=== PATIENT | female | born 1975 | race Caucasian/White ===

== ENCOUNTER 2024-05-19 10:28 | Emergency (ER) | payer BC ==
[2024-05-19] MEDS: Diphtheria,Pertussis(Acell),Tetanus Vaccine 0.5 ML Syringe IM ONE (11:41)
[2024-05-19 11:55] LABS: BASOPHILS PERCENT AUTO 0.3 % (0.0-1.0); EOSINOPHILS PERCENT AUTO 0.9 % (1.0-3.0); HEMATOCRIT 38.3 % (37.0-47.0); HEMOGLOBIN 12.6 g/dL (12.0-16.0); MEAN CORPUSCULAR HEMOGLOBIN 28.8 pg (27.0-34.0); MEAN CORPUSCULAR HGB CONC 32.9 g/dL (33.0-35.0); MEAN CORPUSCULAR VOLUME 87.4 fL (80-100); MONOCYTES PERCENT AUTO 6.3 % (2-8); NEUTROPHILS PERCENT AUTO 78.5 % (42.2-75.2); PLATELET COUNT,PLT 276 10^3/uL (150-450); RED BLOOD CELL COUNT 4.38 10^6/uL (4.2-5.4); WHITE BLOOD CELL COUNT,WBC 12.8 10^3/uL (5.0-10.0)
[2024-05-19] MEDS: Lidocaine 1% with EPINEPHrine 1:100,000 20 ML MDV ONE (12:16)
[2024-05-19] MEDS: Ondansetron 4 MG Tab.DIS ONE (12:17)
[2024-05-19] MEDS: Ondansetron 4 MG Tab.DIS PO ONE (12:17)
[2024-05-19] MEDS: Lidocaine 1% with EPINEPHrine 1:100,000 20 ML MDV INJECT ONE (12:17)
== END 2024-05-19 12:13 | disposition home or self-care (01) ==
LOC: DL.ED 10:28
DX: S61.411A Laceration without foreign body of right hand, initial encounter (principal); Z23 Encounter for immunization; Z88.0 Allergy status to penicillin; W26.8XXA Contact with other sharp object(s), not elsewhere classified, initial encounter
CPT/HCPCS: 12001; 36415; 85025; 90471; 90715; 99282; 99283; A9270; J2004